=== PATIENT | male | born 1975 | race Two or more races ===

== ENCOUNTER 2024-06-16 10:28 | Day surgery (SDC) | payer OTHER ==
[2024-06-10 09:06] LABS: HEMOGLOBIN 14.3 g/dL (13-16.00); MEAN CELL VOLUME 82.8 fL (80.0-100.00); MEAN CORPUSCULAR HEMOGLOBIN 28.1 pg (27.00-32.0); MEAN CORPUSCULAR HGB CONC 33.9 g/dl (32.0-36.0); PLATELET COUNT 196 K/uL (150-450); RED BLOOD COUNT 5.08 M/uL (4.00-6.00); RED CELL DISTRIBUTION WIDTH 14.1 % (11.5-14.5)
[2024-06-10 09:16] LABS: PH,URINE 6.5 (5.0-8.0); URINE APPEARANCE Clear; URINE BILIRRUBIN Negative (NEGATIVE); URINE BLOOD Negative; URINE COLOR Yellow; URINE GLUCOSE Negative (NEGATIVE); URINE KETONE Trace (NEGATIVE); URINE LEUKOCYTE Small; URINE NITRATE Negative; URINE PROTEIN Negative (NEGATIVE)
[2024-06-10 09:18] LABS: URINE BACTERIA 2.5 uL (0.0-1933); URINE EPITHELIAL CELLS 0.6 uL (0.0-38.8); URINE RBC 1.8 uL (0.0-20.8); URINE WBC 7.5 uL (0.0-23.2)
[2024-06-10 09:33] LABS: INR 1.1; PARTIAL THROMBOPLASTIN TIME 27.9 SECONDS (22.0-34.0); PROTHROMBIN TIME 11.9 SECONDS (9.0-11.5)
[2024-06-10 10:02] LABS: ALBUMIN 3.7 gm/dL (3.4-5.0); BILIRUBIN TOTAL 0.99 mg/dL (0.3-1.2); CALCIUM 9.2 mg/dL (8.5-10.1); CREATININE SERUM 1.05 mg/dL (0.70-1.30); GFR 74.46; GLOBULINA 2.7 G/DL (2.4-3.5); POTASSIUM 3.72 mEq/L (3.5-5.1); TOTAL PROTEIN 6.4 gm/dL (6.4-8.2)
[~2024-06-16 10:28] MED LIST: ATORVASTATIN CA20 MG; LOSARTAN POTASS25 MG; TEMAZEPAM30 MG
[2024-06-16] MEDS ORDERED: CIPROFLOXACIN IN 5 % DEXTROSE 400 MG/200 ML PIGGYBAG IV ONE (14:00)
[2024-06-16] MEDS ORDERED: BUPIVACAINE HCL/PF 0.25% 30ML VIAL InF ONE (14:00)
[2024-06-16] MEDS ORDERED: TRAMADOL HCL50 MG PO (14:51)
[2024-06-16] MEDS ORDERED: TYLENOL ARTHRI650 MG PO (14:51)
[2024-06-16] MEDS ORDERED: KETO10TA2 PO (14:51)
[2024-06-16] MEDS ORDERED: MIRALAX17 GM PO (14:51)
[2024-06-16] MEDS ORDERED: MORPHINE SULFATE 4 MG/ML VIAL IV ONE ×2 (17:00→19:20)
== END 2024-06-16 22:10 | disposition home or self-care (01) ==
LOC: CIR.AMB 10:28
PROVIDERS: ATTEND Surgery
DX: K40.90 Unilateral inguinal hernia, without obstruction or gangrene, not specified as recurrent (principal); K41.90 Unilateral femoral hernia, without obstruction or gangrene, not specified as recurrent; K42.0 Umbilical hernia with obstruction, without gangrene; Z88.0 Allergy status to penicillin
CPT/HCPCS: 49650; 49592; C1781